=== PATIENT | female | born 1980 | race Caucasian/White ===

== ENCOUNTER 2018-06-30 12:43 | Emergency (ER) | payer OTHER ==
[~2018-06-30] VITALS: Ht 172.7 cm; Wt 164.3 kg
[~2018-06-30 12:43] MED LIST: NOHOMEMEDICATIONS
[2018-06-30] MEDS ORDERED: TOPROL XL100 MG PO (12:58)
[2018-06-30] MEDS ORDERED: CELEXA20 MG PO (12:59)
[2018-06-30 13:13] LABS: ABSOLUTE BASOPHILS 0.1 thou/uL (0.0-0.2); ABSOLUTE EOSINOPHILS 0.2 thou/uL (0.0-0.7); ABSOLUTE LYMPHOCYTES 1.7 thou/uL (0.8-5.3); ABSOLUTE MONOCYTES 0.7 thou/uL (0.0-1.2); ABSOLUTE NEUTROPHILS 11.8 thou/uL (1.6-8.1); BASOPHILS 0.8 %; EOSINOPHILS 1.4 %; HEMATOCRIT 36.8 % (37.0-47.0); HEMOGLOBIN 11.6 gm/dL (12.0-15.0); LYMPHOCYTES 11.7 %; MCH 22.7 pg (26.0-34.0); MCHC 31.6 g/dL (28.0-37.0); MCV 71.8 fL (80.0-100.0); MONOCYTES 4.8 %; MPV 8.4 fl. (7.2-11.1); NUCLEATED RBCS 0 /100WBC; PLATELET COUNT* 278 thou/uL (150-400); POLYS 81.3 %; RBC 5.12 mil/uL (4.20-5.00); RDW-CV 19.2 % (10.5-14.5); WBC 14.5 thou/uL (4.0-11.0)
[2018-06-30 13:17] LABS: URINE BILIRUBIN NEGATIVE (Negative); URINE BLOOD 3+ (Negative); URINE CLARITY CLEAR; URINE COLOR YELLOW; URINE GLUCOSE-RANDOM NEGATIVE (Negative); URINE KETONES NEGATIVE (Negative); URINE LEUKOCYTES-REFLEX NEGATIVE (Negative); URINE NITRITE-REFLEX NEGATIVE (Negative); URINE PROTEIN NEGATIVE (Negative); URINE SPECIFIC GRAVITY 1.025 (1.005-1.030); URINE UROBILINOGEN 0.2 E.U./dl (0.2-1.0)
[2018-06-30 13:23] LABS: PROTIME 10.1 Seconds (9.20-11.50)
[2018-06-30 13:26] LABS: ANION GAP 11 mmol/L (7-16); BUN 16 mg/dL (7-18); CHLORIDE 103 mmol/L (98-107); CO2 26 mmol/L (21-32); CREATININE 0.9 mg/dL (0.6-1.3); GLUCOSE 101 mg/dL (70-99); SODIUM 140 mmol/L (136-145)
[2018-06-30 13:35] LABS: SQUAMOUS 4-10 Moderate /LPF (0-3)
[2018-06-30 13:36] LABS: BACTERIA-REFLEX 1-9 Few /HPF (None Seen); CASTS None Seen /LPF (None Seen); CRYSTALS None Seen /LPF (None Seen); MUCUS None Seen strn/LPF (None Seen); URINE RBC 3-10 Few /HPF (0-2); URINE WBC-REFLEX 0-5 Rare /HPF (0-5)
[2018-06-30 13:38] LABS: ALBUMIN 4.2 g/dL (3.4-5.0); ALKALINE PHOSPHATASE 90 U/L (46-116); NT-PRO BRAIN NAT PEPTIDE 26 pg/mL (<300); SGOT 12 U/L (15-37); SGPT 23 U/L (30-65); TOTAL BILIRUBIN 0.2 mg/dL (<0.1-1.0); TROPONIN-I LEVEL <0.06 ng/mL (<0.06)
[2018-06-30 14:18] VITALS: BP 161/54
[2018-06-30 14:24] LABS: ANISOCYTOSIS 1+; HYPOCHROMASIA 1+; MICROCYTES 1+; POLYCHROMASIA 1+
--- NOTE | 2018-07-01 17:35 | EKG ---
[place] [address] ELECTROCARDIOGRAM REPORT Name: CHRISTEL MAYBERRY Room: [facility]#: [id number] Admission: 06/30/18 Attend Phys: Discharge: 06/30/18 Date of : 76 Report #: [id number] THIS REPORT FOR: //name// [facility] ED Test Date: 2018-06-30 Test Time: 12:58:36 Pat Name: CHRISTEL MAYBERRY Department: Room: Gender: F [employer] Professor: JODI : 1980 Requested By: Seth Enciso Order Number: [id number] MD: Marito Haley Measurements Intervals [place] Rate: 99 P: 69 OR: 159 QRS: 19 QRSD: 106 T: 24 QT: 360 QTc: 462 Interpretive Statements Sinus rhythm Possible left atrial enlargement Incomplete right bundle-branch block Compared to ECG 10/15/2012 21:53:59 Right ventricular hypertrophy now present RSR' in V1 or V2 now present Sinus tachycardia no longer present Electronically Signed On 07-01-2018 17:35:32 CDT by Marito Haley [email or web address] <ELECTRONICALLY SIGNED> By: Marito Haley MD, FAC 07/01/18 1735 [id number] Marito Haley MD, [facility] /EPI
== END 2018-06-30 14:18 | disposition home or self-care (01) ==
LOC: M.ERS 12:43
PROVIDERS: Family Medicine
DX: R42 Dizziness and giddiness (principal); I10 Essential (primary) hypertension; Z90.89 Acquired absence of other organs